=== PATIENT | male | born 1970 | race Caucasian/White ===

== ENCOUNTER 2022-03-12 17:11 | Emergency (ER) | payer SELFPAY ==
[2022-03-12] MEDS ORDERED: Boostrix 0.5 ML (Tdap) VIAL ONE (18:09)
[2022-03-12] MEDS ORDERED: Amoxicillin/Potassium Clav 875 MG TAB ONE (18:33)
== END 2022-03-12 19:07 | disposition home or self-care (01) ==
LOC: MADERS 17:11
DX: L03.115 Cellulitis of right lower limb (principal); I10 Essential (primary) hypertension; Z87.891 Personal history of nicotine dependence; Z79.899 Other long term (current) drug therapy
CPT/HCPCS: 90471; 90715

== ENCOUNTER 2022-11-25 14:46 | Emergency (ER) | payer SELFPAY ==
[2022-11-25 15:28] LABS: #Basophils 0.1 thou/uL (0.0-0.2); #Eosinphils 0.1 thou/uL (0.0-0.7); #Lymphocytes 1.7 thou/uL (1.20-3.40); #Monocytes 0.5 thou/uL (0.11-0.59); #Neutrophils 5.3 thou/uL (1.40-6.50); %Basophils 0.9 % (0.0-1.0); %Eosinophils 1.6 % (0.0-10.0); %Monocytes 6.3 % (0.0-10.0); %Neutrophils 69.1 % (42.0-75.0); Hemoglobin 16.2 g/dL (14.0-18.0); Mean Corpuscular HGB CONC 33.4 g/dL (32.0-36.0); Mean Corpuscular Hemoglobin 28.2 pg (27.0-31.0); Mean Corpuscular Volume 84.5 fl (78.0-98.0); Mean Platelet Volume 8.1 fL (7.4-10.4); Platelet Count 246 10x3/uL (130-400); RBC Distribution Width 11.4 % (11.5-14.5); Red Blood Cell (RBC) Count 5.74 mill/uL (4.70-6.10); White Blood Cell (WBC) Count 7.7 10x3/uL (4.8-10.8)
[2022-11-25 15:38] LABS: ALT (SGPT) 27 U/L (8-55); AST (SGOT) 15 U/L (5-34); Albumin 4.4 g/dL (3.5-5.0); Alkaline Phosphatase 91 U/L (40-110); Anion Gap 12 mmol/L (10-20); BUN (Urea Nitrogen) 12 mg/dL (8.4-25.7); Bilirubin, Total 0.4 mg/dL (0.2-1.2); Calc. Creatinine Clearance 0 mL/min (70-130); Calcium 9.1 mg/dL (7.8-10.44); Carbon Dioxide 26 mmol/L (22-29); Chloride 109 mmol/L (98-107); Estimated GFR 105; Glucose 113 mg/dL (70-105); Lipase 32 U/L (8-78); Potassium 3.4 mmol/L (3.5-5.1); Protein, Total 7.4 g/dL (6.0-8.3); Sodium 144 mmol/L (136-145)
[2022-11-25] MEDS ORDERED: Potassium Chloride 20 MEQ TAB ONE (15:52)
[2022-11-25] MEDS ORDERED: Aspirin Chewable 81 MG TAB ONE (15:52)
== END 2022-11-25 20:00 | disposition home or self-care (01) ==
LOC: MADERS 14:46
DX: I10 Essential (primary) hypertension (principal); E87.6 Hypokalemia; Z87.891 Personal history of nicotine dependence
CPT/HCPCS: 36415; 71046; 80053; 83690; 83735; 84443; 84484; 85025; 93005; 94760

== ENCOUNTER 2024-09-03 07:01 | Emergency (ER) | payer OTHER, SELFPAY ==
[2024-09-03] MEDS ORDERED: Lisinopril 10 MG TAB ONE (07:27)
[2024-09-03] MEDS ORDERED: Hydrochlorothiazide 25 MG TAB ONE (07:27)
[2024-09-03] MEDS ORDERED: Cyclobenzaprine 10 MG TAB ONE (07:27)
[2024-09-03] MEDS ORDERED: Ketorolac Tromethamine 30 MG (1 mL) VIAL ONE (07:28)
== END 2024-09-03 07:58 | disposition home or self-care (01) ==
LOC: MADERS 07:01
DX: S29.011A Strain of muscle and tendon of front wall of thorax, initial encounter (principal); J01.90 Acute sinusitis, unspecified; I10 Essential (primary) hypertension; X50.9XXA Other and unspecified overexertion or strenuous movements or postures, initial encounter; Z55.6 Problems related to health literacy; Z87.891 Personal history of nicotine dependence
CPT/HCPCS: 71046; 93005; 96372; J1885